=== PATIENT | male | born 1995 | race Caucasian/White ===

== ENCOUNTER 2021-03-20 16:53 | Emergency (ER) | payer OTHER ==
[2021-03-20 17:39] LABS: EOSINOPHIL 2.4 % (0-5); HGB 12.3 g/dl (13.2-18.0); LYMPHOCYTE 16.4 % (15-48); MCH 31.5 pg (25.0-31.0); MCHC 33.2 g/dL (32.0-36.0); MCV 94.9 fL (78.0-100.0); MONOCYTE 20.3 % (0-12); MPV 10.9 fL (6.0-9.5); NEUTROPHIL 59.7 % (41-80); NRBC 0; PLT 211 K/uL (150-400); RDW 12.1 % (11.5-14.0)
[2021-03-20 17:42] LABS: WBC 6.2 K/uL (4.0-10.5)
[2021-03-20 17:48] LABS: INR 1.04 (0.9-1.2); PTT 30.5 SECONDS (24.4-34.7)
[2021-03-20 17:54] LABS: ALBUMIN 3.7 g/dL (3.4-5.0); BILIRUBIN - TOTAL 0.2 mg/dL (0.2-1.0); BUN/CREAT RATIO (CALC) 14.1 RATIO; CREATININE 0.71 mg/dL (0.67-1.17); GLOBULIN (CALCULATION) 3.1 g/dL; POTASSIUM 3.2 mmol/L (3.5-5.1); TOTAL PROTEIN 6.8 g/dL (6.4-8.2)
== END 2021-03-20 19:07 | disposition home or self-care (01) ==
LOC: FER 16:53
PROVIDERS: Emergency Medicine
DX: U07.1 COVID-19 (principal); K27.9 Peptic ulcer, site unspecified, unspecified as acute or chronic, without hemorrhage or perforation; F17.210 Nicotine dependence, cigarettes, uncomplicated; Z88.8 Allergy status to other drugs, medicaments and biological substances
CPT/HCPCS: 36415; 74022; 80053; 83690; 85025; 85610; 85730; 93005; U0002